=== PATIENT | male | born 1955 | race Hispanic/Latino ===

== ENCOUNTER 2019-06-14 13:12 | Inpatient (IN) | payer MEDICARE, OTHER ==
[~2019-06-14] VITALS: Ht 175.3 cm; Wt 134.4 kg
[2019-06-14 14:12] LABS: BASOPHILS % (AUTO) 0.6 % (0.0-5.0); EOSINOPHILS % (AUTO) 2.7 % (0.0-8.0); HEMATOCRIT 37.1 % (42-54); LYMPHOCYTES % (AUTO) 10.4 % (21.0-51.0); MEAN CORPUSCULAR HEMOGLOBIN 27.2 pg (27.0-33.0); MEAN CORPUSCULAR VOLUME 87.7 fL (79-99); MONOCYTES % (AUTO) 7.3 % (3.0-13.0); NEUTROPHILS % (AUTO) 78.5 % (40.0-77.0); PLATELET COUNT (AUTO) 161 K/uL (130-400); RED BLOOD CELL COUNT(AUTO) 4.23 MIL/uL (4.50-6.20); WHITE BLOOD COUNT (AUTO) 8.5 K/uL (4.8-10.8)
[2019-06-14 14:26] LABS: PARTIAL THROMBOPLASTIN TIME 27.7 SEC (26.3-35.5); PROTHROMBIN TIME 10.8 SEC (9.6-11.6)
[2019-06-14 14:27] LABS: CREATININE 2.2 mg/dL (0.5-1.5); POTASSIUM 4.2 mmol/L (3.5-5.1)
[2019-06-14 14:32] LABS: ALBUMIN 2.6 g/dL (3.5-5.0); BILIRUBIN,TOTAL 0.5 mg/dL (0.2-1.0); TOTAL PROTEIN, SERUM 6.8 g/dL (6.0-8.3)
[2019-06-14] MEDS ORDERED: FUROSEMIDE 10 MG/ML 4ML VIAL ONE (14:47)
[2019-06-14] MEDS ORDERED: FUROSEMIDE 10 MG/ML 2ML VIAL ONE (14:47)
[2019-06-14 15:17] LABS: B-TYPE NATRIURETIC PEPTIDE 616 pg/mL (0-100)
[2019-06-14] MEDS ORDERED: ONDANSETRON HCL 4 MG/2 ML VIAL IV PRN (18:30)
[2019-06-14] MEDS ORDERED: ACETAMINOPHEN 325 MG TAB PO PRN ×2 (18:30)
[2019-06-14 21:00] VITALS: BP 154/88
[2019-06-14] MEDS ORDERED: FUROSEMIDE 10 MG/ML 2ML VIAL IV SCH (21:00)
[2019-06-14] MEDS: FUROSEMIDE 10 MG/ML 2ML VIAL IV SCH (22:07)
[2019-06-14] MEDS: FAMOTIDINE/PF 20 MG/2 ML VIAL IV SCH (22:07)
[2019-06-14] MEDS: INSULIN HUMULIN R 100 UNIT/ML 3ML SQ SCH (22:15)
[2019-06-14] MEDS ORDERED: LISI-613 PO (22:18)
[2019-06-14] MEDS ORDERED: ATOR20TA PO (22:20)
[2019-06-14] MEDS ORDERED: CARV6.25 PO (22:23)
[2019-06-14] MEDS ORDERED: AMLO-258 PO (22:25)
[2019-06-14] MEDS ORDERED: FURO40TA5 PO (22:43)
[2019-06-15] VITALS (7 sets, daily range): BP systolic 129–157; BP diastolic 73–92
[2019-06-15] MEDS ORDERED: INSU100V12 SQ (00:25)
[2019-06-15 05:35] LABS: BASOPHILS % (AUTO) 0.4 % (0.0-5.0); EOSINOPHILS % (AUTO) 2.5 % (0.0-8.0); HEMATOCRIT 34.4 % (42-54); LYMPHOCYTES % (AUTO) 13.6 % (21.0-51.0); MEAN CORPUSCULAR HEMOGLOBIN 26.8 pg (27.0-33.0); MEAN CORPUSCULAR HGB CONC 30.2 g/dL (32.0-36.0); MEAN CORPUSCULAR VOLUME 88.7 fL (79-99); MONOCYTES % (AUTO) 10.1 % (3.0-13.0); NEUTROPHILS % (AUTO) 73.1 % (40.0-77.0); PLATELET COUNT (AUTO) 158 K/uL (130-400); RED BLOOD CELL COUNT(AUTO) 3.88 MIL/uL (4.50-6.20); WHITE BLOOD COUNT (AUTO) 9.2 K/uL (4.8-10.8)
[2019-06-15 05:51] LABS: B-TYPE NATRIURETIC PEPTIDE 663 pg/mL (0-100)
[2019-06-15] MEDS: INSULIN HUMULIN R 100 UNIT/ML 3ML SQ SCH ×4 (05:52→20:11)
[2019-06-15 05:56] LABS: ALBUMIN 2.2 g/dL (3.5-5.0); BILIRUBIN,TOTAL 0.4 mg/dL (0.2-1.0); CREATININE 2.4 mg/dL (0.5-1.5); POTASSIUM 4.2 mmol/L (3.5-5.1)
--- NOTE | 2019-06-15 08:27 | NUR ---
SEEN BY DR Aminta MIGUEL (CARDIO). STABLE.
[2019-06-15] MEDS: FUROSEMIDE 10 MG/ML 2ML VIAL IV SCH (08:29)
[2019-06-15] MEDS: FAMOTIDINE/PF 20 MG/2 ML VIAL IV SCH (08:29)
[2019-06-15] MEDS: ENOXAPARIN SODIUM 30 MG/0.3 ML SQ SCH (08:30)
--- NOTE | 2019-06-15 10:00 | NUR ---
[facility] CONSULT PATIENT ASSESSED REQUESTED: PATIENT PRESENTS WITH VENOUS ULCERS TO BILATERAL LOWER EXTREMITIES; [facility] RECOMMENDATIONS SUBMITTED. Addendum: 06/18/19 at 1211 by KIKO CAMILO LVN LVN W Amended: Links added.
--- NOTE | 2019-06-15 10:00 | NUR ---
WOUND CARE NURSE HERE TO SEE FOR WOUND ASSESSMENT
--- NOTE | 2019-06-15 13:18 | NUR ---
INITIAL SW spoke to patient's spouse, Meredith Juarez, [phone]. Patient has no home services. DME: walker, shower chair. Patient needs help with ADL's and spouse states she tries to help as much as possible. 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 Spouse states she does not drive. SW informed spouse that she could call patient's insurance and check if it covers transportation. PCP is Dr. Dejan Peña. Pharmacy is [facility] located in [place]. Spouse requesting assistance at home when patient is discharged to assist her in caring for patient. DCP is home. Addendum: 06/15/19 at 1322 by PAVEL MCLAUGHLIN SS Amended: Links added.
--- NOTE | 2019-06-15 15:18 | NUR ---
UPDATED DR. ESPINOZA ABOUT INABILITY TO INSERT FOLY CATHETER R/T SCROTAL SWELLING AEB RETRACTED PENIS. ORDERED FOR BLADDER SCAN WITH EVERY URINATION.
[2019-06-15] MEDS ORDERED: BUMETANIDE 0.25 MG/ML 10 ML VIAL IV SCH (16:30)
--- NOTE | 2019-06-15 17:15 | NUR ---
CALLED DR. VELASCO REGARDING PULMONOLOGY CONSULT. LEFT VOICE MAIL. CALLBACK AWAITED.
[2019-06-15] MEDS: CLINDAMYCIN 300 MG/D5W 50 ML 50 ML IV SCH ×2 (19:37→21:30)
--- NOTE | 2019-06-15 19:42 | NUR ---
DR. MCCABE SAW PT. NEW ORDERS ACKNOWLEDGED AND INITIATED.
[2019-06-15] MEDS: CARVEDILOL 3.125 MG TABLET PO SCH (19:43)
[2019-06-15] MEDS: HONEY 1 APPL/ML TUBE TP SCH (19:44)
--- NOTE | 2019-06-15 21:00 | NUR ---
c-pap PATIENT IS REFUSING TO TRY C-PAP AT THIS TIME. EDUCATED PATIENT ON RISKS AND BENEFITS BUT HE STILL REFUSED.
--- NOTE | 2019-06-15 21:00 | NUR ---
POST VOID BLADDER SCAN RECORDED THUS: 50ML @ 1550 50ML @1710 131ML @1830
[2019-06-15] MEDS: BUMETANIDE 0.25 MG/ML 80 ML IV SCH (21:52)
--- NOTE | 2019-06-16 02:01 | NUR ---
POST VOID BLADDER SCAN OF 100ML POST VOID.
[2019-06-16 03:59] VITALS: BP 159/87
[2019-06-16] MEDS: CLINDAMYCIN 300 MG/D5W 50 ML 50 ML IV SCH ×4 (04:03→22:21)
[2019-06-16] MEDS: INSULIN HUMULIN R 100 UNIT/ML 3ML SQ SCH ×4 (04:50→22:22)
[2019-06-16 05:44] LABS: BASOPHILS % (AUTO) 0.4 % (0.0-5.0); EOSINOPHILS % (AUTO) 2.7 % (0.0-8.0); HEMATOCRIT 35.8 % (42-54); MEAN CORPUSCULAR HEMOGLOBIN 26.7 pg (27.0-33.0); MEAN CORPUSCULAR HGB CONC 30.4 g/dL (32.0-36.0); MEAN CORPUSCULAR VOLUME 87.5 fL (79-99); MONOCYTES % (AUTO) 9.6 % (3.0-13.0); NEUTROPHILS % (AUTO) 72.1 % (40.0-77.0); PLATELET COUNT (AUTO) 153 K/uL (130-400); RED BLOOD CELL COUNT(AUTO) 4.09 MIL/uL (4.50-6.20); RED CELL DISTRIBUTION WIDTH 15.9 % (11.0-15.5)
[2019-06-16 06:09] LABS: CREATININE 2.4 mg/dL (0.5-1.5); MAGNESIUM 2.2 mg/dL (1.80-2.40); PHOSPHORUS 5.3 mg/dL (2.5-4.9); POTASSIUM 4.2 mmol/L (3.5-5.1); THYROID STIMULATING HORMONE 2.03 uIU/mL (0.36-3.74); URIC ACID 7.9 mg/dL (2.6-7.2)
[2019-06-16 07:30] VITALS: BP 168/76
[2019-06-16] MEDS: HONEY 1 APPL/ML TUBE TP SCH (09:57)
[2019-06-16] MEDS: FAMOTIDINE/PF 20 MG/2 ML VIAL IV SCH (09:58)
[2019-06-16] MEDS: CARVEDILOL 3.125 MG TABLET PO SCH ×2 (09:58→19:42)
[2019-06-16] MEDS: ENOXAPARIN SODIUM 30 MG/0.3 ML SQ SCH (09:58)
[2019-06-16] MEDS: Vitamin B Complex/Vit C/Folic Acid PO SCH (09:58)
[2019-06-16 11:00] VITALS: BP 154/79
[2019-06-16] MEDS: METOLAZONE 2.5 MG TABLET PO SCH (12:28)
[2019-06-16] MEDS: BUMETANIDE 0.25 MG/ML 80 ML IV SCH (13:42)
--- NOTE | 2019-06-16 13:54 | NUR ---
RD Notification Pt tolerating Renal, 75gm CC diet order with fluid restriction. No report of GI distress, Good PO intake at 100%. Pt with CHF pending nutrition education. RD to follow up with nutrition education. Please notify as additional nutrition concerns arise. Thank you. Addendum: 06/16/19 at [address] RD Amended: Links added.
--- NOTE | 2019-06-16 14:19 | NUR ---
NUTRITION EDUCATION JOHNATHON provided Heart Failure Nutrition education. JOHNATHON provided reference materials and handouts. Pt with some visual impairment with small font, states he does not wear glasses at home. Pt demonstrated knowledge of fluid and sodium restrictions. 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 Pt verbalized and demonstrated understanding of nutrition education. Addendum: 06/16/19 at [address] RD Amended: Links added.
[2019-06-16 16:00] VITALS: BP 163/71
[2019-06-16] MEDS: HYDROMORPHONE 1 MG/1 ML AMP IV PRN (19:49)
[2019-06-16 20:00] VITALS: BP 162/99
[2019-06-17] VITALS: BP 142/71
[2019-06-17] MEDS: HYDROMORPHONE 1 MG/1 ML AMP IV PRN ×2 (00:56→03:38)
[2019-06-17] MEDS: CLINDAMYCIN 300 MG/D5W 50 ML 50 ML IV SCH ×4 (03:37→22:44)
[2019-06-17 04:49] LABS: BASOPHILS % (AUTO) 0.5 % (0.0-5.0); HEMATOCRIT 34.9 % (42-54); MEAN CORPUSCULAR HEMOGLOBIN 27.3 pg (27.0-33.0); MEAN CORPUSCULAR HGB CONC 31.5 g/dL (32.0-36.0); MEAN CORPUSCULAR VOLUME 86.6 fL (79-99); MONOCYTES % (AUTO) 9.1 % (3.0-13.0); PLATELET COUNT (AUTO) 155 K/uL (130-400); RED BLOOD CELL COUNT(AUTO) 4.03 MIL/uL (4.50-6.20); RED CELL DISTRIBUTION WIDTH 15.7 % (11.0-15.5); WHITE BLOOD COUNT (AUTO) 7.5 K/uL (4.8-10.8)
[2019-06-17 04:52] VITALS: BP 151/83
[2019-06-17 05:08] LABS: CREATININE 2.5 mg/dL (0.5-1.5); POTASSIUM 3.8 mmol/L (3.5-5.1)
[2019-06-17 05:18] LABS: B-TYPE NATRIURETIC PEPTIDE 990 pg/mL (0-100)
[2019-06-17 05:29] LABS: % IRON SATURATION 17.9 % (30-44)
[2019-06-17] MEDS: INSULIN HUMULIN R 100 UNIT/ML 3ML SQ SCH ×4 (06:25→21:11)
[2019-06-17 07:30] VITALS: BP 159/89
[2019-06-17] MEDS: METOLAZONE 2.5 MG TABLET PO SCH ×2 (10:19→10:31)
[2019-06-17] MEDS: Vitamin B Complex/Vit C/Folic Acid PO SCH ×2 (10:19→10:32)
[2019-06-17] MEDS: CARVEDILOL 3.125 MG TABLET PO SCH ×3 (10:22→20:57)
[2019-06-17] MEDS: ENOXAPARIN SODIUM 30 MG/0.3 ML SQ SCH ×2 (10:23→10:33)
[2019-06-17] MEDS: FAMOTIDINE/PF 20 MG/2 ML VIAL IV SCH ×2 (10:25→10:33)
[2019-06-17 10:58] LABS: ABG BASE EXCESS 2.4 mmol/L (-2.0-3.0); ABG HCO3 28.5 mmol/L (21.0-28.0); ABG OXYGEN SATURATION 85.5 % (95.0-99.0); ABG PCO2 49 mmHg (35-48)
[2019-06-17 11:00] VITALS: BP 170/75
[2019-06-17] MEDS ORDERED: BUMETANIDE 0.25 MG/ML 10 ML 40 ML IV SCH (15:00)
[2019-06-17 16:00] VITALS: BP 159/82
[2019-06-17] MEDS: HONEY 1 APPL/ML TUBE TP SCH (17:21)
[2019-06-17] MEDS: BUMETANIDE 0.25 MG/ML 10 ML 40 ML IV SCH (18:38)
[2019-06-17 20:56] VITALS: BP 142/75
[2019-06-17] MEDS: FERROUS SULFATE 325 MG TABLET.DR PO SCH (20:57)
[2019-06-18] VITALS (7 sets, daily range): BP systolic 105–165; BP diastolic 64–85
[2019-06-18] MEDS: BUMETANIDE 0.25 MG/ML 10 ML 40 ML IV SCH ×2 (02:53→12:03)
[2019-06-18] MEDS: CLINDAMYCIN 300 MG/D5W 50 ML 50 ML IV SCH ×4 (04:45→22:15)
[2019-06-18 05:41] LABS: HEMATOCRIT 35.9 % (42-54); MEAN CORPUSCULAR HEMOGLOBIN 26.8 pg (27.0-33.0); MEAN CORPUSCULAR HGB CONC 31.5 g/dL (32.0-36.0); MEAN CORPUSCULAR VOLUME 85.1 fL (79-99); PLATELET COUNT (AUTO) 162 K/uL (130-400); RED BLOOD CELL COUNT(AUTO) 4.22 MIL/uL (4.50-6.20); RED CELL DISTRIBUTION WIDTH 15.7 % (11.0-15.5); WHITE BLOOD COUNT (AUTO) 8.2 K/uL (4.8-10.8)
[2019-06-18] MEDS: INSULIN HUMULIN R 100 UNIT/ML 3ML SQ SCH ×4 (05:48→20:31)
[2019-06-18 05:53] LABS: CREATININE 2.4 mg/dL (0.5-1.5); MAGNESIUM 1.9 mg/dL (1.80-2.40); PHOSPHORUS 4.7 mg/dL (2.5-4.9); POTASSIUM 3.4 mmol/L (3.5-5.1)
[2019-06-18 06:00] LABS: EOSINOPHILS % (MANUAL) 4 % (1-6); LYMPHOCYTES % (MANUAL) 17 % (22-44); MONOCYTES % (MANUAL) 6 % (2-9); SEGMENTED NEUTROPHILS % 73 % (40-70)
[2019-06-18 06:01] LABS: MAN.DIFF COMMENT-IMPRESSION MANUAL DIFFERENTIAL
[2019-06-18 06:04] LABS: B-TYPE NATRIURETIC PEPTIDE 703 pg/mL (0-100)
[2019-06-18] MEDS: METOLAZONE 2.5 MG TABLET PO SCH (09:00)
[2019-06-18] MEDS: ASCORBIC ACID 500 MG TAB PO SCH ×2 (09:00→09:23)
[2019-06-18] MEDS: Vitamin B Complex/Vit C/Folic Acid PO SCH (09:00)
[2019-06-18] MEDS: FERROUS SULFATE 325 MG TABLET.DR PO SCH ×2 (09:23→20:26)
[2019-06-18] MEDS: CARVEDILOL 3.125 MG TABLET PO SCH ×2 (09:23→20:27)
[2019-06-18] MEDS: HONEY 1 APPL/ML TUBE TP SCH (09:24)
--- NOTE | 2019-06-18 10:00 | NUR ---
WOUND CARE DONE. VENOUS ULCERS CLEANED WITH NS, MEDIHONEY APPLIED AND 4X4 GAUZE ON TOP. WRAPPED LEGS WITH KERLEX.
--- NOTE | 2019-06-18 15:33 | NUR ---
MD ROUNDS DR ESPINOZA VISITED WITH PATIENT. POC DISCUSSED. DR ESPINOZA THINKS IS APPROPIATE FOR PATIENT TO CONTINUE THE BUMEX DRIP WELL THE PO DIURETICS.
[2019-06-18 16:11] LABS: HEMATOCRIT 34.5 % (42-54); MEAN CORPUSCULAR HEMOGLOBIN 27.3 pg (27.0-33.0); MEAN CORPUSCULAR HGB CONC 31.3 g/dL (32.0-36.0); MEAN CORPUSCULAR VOLUME 87.3 fL (79-99); PLATELET COUNT (AUTO) 159 K/uL (130-400); RED BLOOD CELL COUNT(AUTO) 3.95 MIL/uL (4.50-6.20); RED CELL DISTRIBUTION WIDTH 15.6 % (11.0-15.5); WHITE BLOOD COUNT (AUTO) 8.9 K/uL (4.8-10.8)
[2019-06-18 16:29] LABS: CREATININE 2.4 mg/dL (0.5-1.5); POTASSIUM 3.4 mmol/L (3.5-5.1)
[2019-06-18 16:56] LABS: BAND NEUTROPHILS % (MANUAL) 1 % (0-2); EOSINOPHILS % (MANUAL) 3 % (1-6); LYMPHOCYTES % (MANUAL) 6 % (22-44); MAN.DIFF COMMENT-IMPRESSION MANUAL DIFFERENTIAL; MONOCYTES % (MANUAL) 3 % (2-9); PLATELET MORPHOLOGY COMMENT ADEQUATE; SEGMENTED NEUTROPHILS % 87 % (40-70)
[2019-06-19] MEDS: BUMETANIDE 0.25 MG/ML 10 ML 40 ML IV SCH (02:14)
[2019-06-19 04:00] VITALS: BP 151/76
[2019-06-19] MEDS: CLINDAMYCIN 300 MG/D5W 50 ML 50 ML IV SCH ×4 (04:43→22:24)
[2019-06-19 05:52] LABS: CREATININE 2.5 mg/dL (0.5-1.5); POTASSIUM 3.3 mmol/L (3.5-5.1)
[2019-06-19] MEDS: INSULIN HUMULIN R 100 UNIT/ML 3ML SQ SCH ×4 (05:54→20:32)
[2019-06-19 08:56] VITALS: BP 165/75
[2019-06-19] MEDS: METOLAZONE 2.5 MG TABLET PO SCH (09:36)
[2019-06-19] MEDS: FAMOTIDINE/PF 20 MG/2 ML VIAL IV SCH (09:36)
[2019-06-19] MEDS: ASCORBIC ACID 500 MG TAB PO SCH (09:36)
[2019-06-19] MEDS: Vitamin B Complex/Vit C/Folic Acid PO SCH (09:36)
[2019-06-19] MEDS: CARVEDILOL 3.125 MG TABLET PO SCH ×2 (09:36→20:29)
[2019-06-19] MEDS: FERROUS SULFATE 325 MG TABLET.DR PO SCH ×2 (09:36→20:27)
[2019-06-19] MEDS: HONEY 1 APPL/ML TUBE TP SCH (09:37)
[2019-06-19] MEDS: ENOXAPARIN SODIUM 30 MG/0.3 ML SQ SCH (09:37)
[2019-06-19 12:11] VITALS: BP 137/70
--- NOTE | 2019-06-19 16:00 | NUR ---
DR HARTMAN VISITED WITH PATIENT. HE REMOVED BOTH HALLUX TOENAILS. HYDROFERA BLUE FOAM AND TAPE APPLIED.
--- NOTE | 2019-06-19 16:00 | NUR ---
WOUND CARE DONE. VENOUS ULCERS CLEANED WITH NS, MEDIHONEY APPLIED AND 4X4 GAUZE ON TOP. WRAPPED LEGS WITH KERLEX.
[2019-06-19 16:46] VITALS: BP 163/89
[2019-06-19 19:30] VITALS: BP 152/85
[2019-06-19 23:07] VITALS: BP 133/70
[2019-06-20] MEDS: BUMETANIDE 0.25 MG/ML 10 ML 40 ML IV SCH ×2 (00:12→11:16)
[2019-06-20] MEDS: CLINDAMYCIN 300 MG/D5W 50 ML 50 ML IV SCH ×4 (03:54→23:10)
[2019-06-20 04:00] VITALS: BP 128/73
[2019-06-20 04:53] LABS: BASOPHILS % (AUTO) 0.4 % (0.0-5.0); EOSINOPHILS % (AUTO) 2.2 % (0.0-8.0); HEMATOCRIT 34.9 % (42-54); LYMPHOCYTES % (AUTO) 12.6 % (21.0-51.0); MEAN CORPUSCULAR HEMOGLOBIN 27.1 pg (27.0-33.0); MEAN CORPUSCULAR HGB CONC 32.1 g/dL (32.0-36.0); MEAN CORPUSCULAR VOLUME 84.5 fL (79-99); MONOCYTES % (AUTO) 9.8 % (3.0-13.0); NEUTROPHILS % (AUTO) 74.7 % (40.0-77.0); PLATELET COUNT (AUTO) 163 K/uL (130-400); RED BLOOD CELL COUNT(AUTO) 4.13 MIL/uL (4.50-6.20); RED CELL DISTRIBUTION WIDTH 15.3 % (11.0-15.5); WHITE BLOOD COUNT (AUTO) 9.2 K/uL (4.8-10.8)
[2019-06-20 05:16] LABS: CREATININE 2.4 mg/dL (0.5-1.5); PHOSPHORUS 4.5 mg/dL (2.5-4.9)
[2019-06-20 05:19] LABS: B-TYPE NATRIURETIC PEPTIDE 752 pg/mL (0-100)
[2019-06-20] MEDS: INSULIN HUMULIN R 100 UNIT/ML 3ML SQ SCH ×4 (06:12→21:00)
[2019-06-20] MEDS ORDERED: POTASSIUM CHLORIDE 20 MEQ ERTAB PO SCH (07:45)
[2019-06-20 07:57] VITALS: BP 156/70
[2019-06-20] MEDS: FERROUS SULFATE 325 MG TABLET.DR PO SCH ×2 (08:59→19:26)
[2019-06-20] MEDS: FAMOTIDINE/PF 20 MG/2 ML VIAL IV SCH (08:59)
[2019-06-20] MEDS: ASCORBIC ACID 500 MG TAB PO SCH (08:59)
[2019-06-20] MEDS: CARVEDILOL 3.125 MG TABLET PO SCH ×2 (09:00→19:27)
[2019-06-20] MEDS: Vitamin B Complex/Vit C/Folic Acid PO SCH (09:00)
[2019-06-20] MEDS: ENOXAPARIN SODIUM 30 MG/0.3 ML SQ SCH (09:01)
[2019-06-20] MEDS: HONEY 1 APPL/ML TUBE TP SCH (09:01)
--- NOTE | 2019-06-20 09:50 | NUR ---
WOUND CARE DONE. VENOUS ULCERS CLEANED WITH NS, MEDIHONEY APPLIED AND 4X4 GAUZE ON TOP. WRAPPED LEGS WITH KERLEX.
[2019-06-20 12:00] VITALS: BP 137/68
[2019-06-20 16:00] VITALS: BP 160/59
[2019-06-20] MEDS ORDERED: CARV3.12 PO (17:24)
[2019-06-20] MEDS: HYDROMORPHONE 1 MG/1 ML AMP IV PRN ×2 (19:27→23:10)
[2019-06-20 20:57] VITALS: BP 137/59
[2019-06-20 23:37] VITALS: BP 150/81
[2019-06-21] MEDS: HYDROMORPHONE 1 MG/1 ML AMP IV PRN ×2 (02:18→05:01)
[2019-06-21 04:01] VITALS: BP 145/85
[2019-06-21] MEDS: CLINDAMYCIN 300 MG/D5W 50 ML 50 ML IV SCH ×2 (05:00→09:54)
[2019-06-21 05:07] LABS: BASOPHILS % (AUTO) 0.3 % (0.0-5.0); EOSINOPHILS % (AUTO) 2.5 % (0.0-8.0); HEMATOCRIT 35.5 % (42-54); LYMPHOCYTES % (AUTO) 13.7 % (21.0-51.0); MEAN CORPUSCULAR HEMOGLOBIN 26.4 pg (27.0-33.0); MEAN CORPUSCULAR HGB CONC 31.3 g/dL (32.0-36.0); MEAN CORPUSCULAR VOLUME 84.5 fL (79-99); MONOCYTES % (AUTO) 11.2 % (3.0-13.0); PLATELET COUNT (AUTO) 170 K/uL (130-400); RED CELL DISTRIBUTION WIDTH 15.5 % (11.0-15.5); WHITE BLOOD COUNT (AUTO) 9.7 K/uL (4.8-10.8)
[2019-06-21 05:16] LABS: CREATININE 2.5 mg/dL (0.5-1.5); MAGNESIUM 1.9 mg/dL (1.80-2.40); POTASSIUM 3.1 mmol/L (3.5-5.1)
[2019-06-21 05:38] LABS: B-TYPE NATRIURETIC PEPTIDE 659 pg/mL (0-100)
[2019-06-21] MEDS: INSULIN HUMULIN R 100 UNIT/ML 3ML SQ SCH ×2 (06:31→11:30)
[2019-06-21 08:00] VITALS: BP 162/72
[2019-06-21] MEDS ORDERED: POTASSIUM CHLORIDE 20 MEQ ERTAB PO SCH (08:15)
[2019-06-21] MEDS ORDERED: MAGNESIUM OXIDE 400 MG TABLET PO SCH (08:15)
[2019-06-21] MEDS: FERROUS SULFATE 325 MG TABLET.DR PO SCH (08:18)
[2019-06-21] MEDS: CARVEDILOL 3.125 MG TABLET PO SCH (08:18)
[2019-06-21] MEDS: ASCORBIC ACID 500 MG TAB PO SCH (08:18)
[2019-06-21] MEDS: Vitamin B Complex/Vit C/Folic Acid PO SCH (08:18)
[2019-06-21] MEDS: FAMOTIDINE/PF 20 MG/2 ML VIAL IV SCH (08:18)
[2019-06-21] MEDS: ENOXAPARIN SODIUM 30 MG/0.3 ML SQ SCH (08:19)
[2019-06-21] MEDS: HONEY 1 APPL/ML TUBE TP SCH (08:19)
[2019-06-21 12:00] VITALS: BP 161/71
--- NOTE | 2019-06-21 12:50 | NUR ---
NEPHROLOGY DR. ESPINOZA IN TO SEE PATIENT. HAS BEEN CLEARED FOR DISCHARGE FROM HIS STANDPOINT.
[2019-06-21] MEDS ORDERED: BUME2TAB5 PO ×2 (13:28→14:52)
[2019-06-21] MEDS ORDERED: POTA-79 PO ×2 (13:28→14:52)
[2019-06-21] MEDS ORDERED: FERR324T4 PO (13:28)
[2019-06-21] MEDS ORDERED: CLIN300C9 PO ×2 (13:28→14:52)
[2019-06-21] MEDS ORDERED: CARV3.1262 PO (13:28)
[2019-06-21] MEDS ORDERED: AMLO-257 PO ×2 (13:42→14:52)
--- NOTE | 2019-06-21 14:44 | NUR ---
INSTRUCTIONS DISCHARGE INSTRUCTIONS GIVEN TO PATIENT USING TEACH BACK. NEW PRESCRIPTIONS PLACED IN PACKET ALONG WITH ALL PRINTED INFORMATION AND MD INSTRUCTIONS. F/U APPOINTMENTS MADE. IV REMOVED WITH TIP INTACT. DIRECT PRESSURE APPLIED UNTIL BLEEDING CONTROLLED THEN SITE COVERED WITH GAUZE AND SECURED WITH TAPE. NO QUESTIONS OR CONCERNS VOICED.
[2019-06-21] MEDS ORDERED: CARV3.12 PO (14:52)
[2019-06-21] MEDS ORDERED: FERS325 PO (14:52)
[2019-06-21] MEDS ORDERED: FUROSEMIDE 40 MG TABLET PO SCH (17:00)
== END 2019-06-21 15:50 | disposition home or self-care (01) | DRG 602 ==
LOC: EDH 13:12 → EDHIP 18:20 → 3DH 20:03
PROVIDERS: ADMIT Hospitalist; ATTEND Hospitalist
PROC: 0HDRXZZ Extraction of Toe Nail, External Approach (ICD-10-PCS; principal; 2019-06-19)
PROC: 0HDRXZZ Extraction of Toe Nail, External Approach (ICD-10-PCS; 2019-06-19)
PROC: 0HDRXZZ Extraction of Toe Nail, External Approach (ICD-10-PCS; 2019-06-19)
PROC: 0HDRXZZ Extraction of Toe Nail, External Approach (ICD-10-PCS; 2019-06-19)
PROC: 0HDRXZZ Extraction of Toe Nail, External Approach (ICD-10-PCS; 2019-06-19)
PROC: 0HDRXZZ Extraction of Toe Nail, External Approach (ICD-10-PCS; 2019-06-19)
PROC: 0HDRXZZ Extraction of Toe Nail, External Approach (ICD-10-PCS; 2019-06-19)
PROC: 0HDRXZZ Extraction of Toe Nail, External Approach (ICD-10-PCS; 2019-06-19)
PROC: 0HDRXZZ Extraction of Toe Nail, External Approach (ICD-10-PCS; 2019-06-19)
PROC: 0HDRXZZ Extraction of Toe Nail, External Approach (ICD-10-PCS; 2019-06-19)
DX: L03.116 Cellulitis of left lower limb (principal); I50.43 Acute on chronic combined systolic (congestive) and diastolic (congestive) heart failure; I13.0 Hypertensive heart and chronic kidney disease with heart failure and stage 1 through stage 4 chronic kidney disease, or unspecified chronic kidney disease; N17.9 Acute kidney failure, unspecified; Z68.42 Body mass index [BMI] 45.0-49.9, adult; J96.11 Chronic respiratory failure with hypoxia; J96.12 Chronic respiratory failure with hypercapnia; E66.2 Morbid (severe) obesity with alveolar hypoventilation; L03.115 Cellulitis of right lower limb; N50.89 Other specified disorders of the male genital organs; H10.9 Unspecified conjunctivitis; I87.2 Venous insufficiency (chronic) (peripheral); N18.3 Chronic kidney disease, stage 3 (moderate); E78.5 Hyperlipidemia, unspecified; E11.22 Type 2 diabetes mellitus with diabetic chronic kidney disease; B35.1 Tinea unguium; D63.1 Anemia in chronic kidney disease; E11.621 Type 2 diabetes mellitus with foot ulcer; E87.6 Hypokalemia; Z91.19 Patient's noncompliance with other medical treatment and regimen; L60.2 Onychogryphosis; L30.9 Dermatitis, unspecified; I87.8 Other specified disorders of veins; L97.509 Non-pressure chronic ulcer of other part of unspecified foot with unspecified severity; E11.51 Type 2 diabetes mellitus with diabetic peripheral angiopathy without gangrene; I83.009 Varicose veins of unspecified lower extremity with ulcer of unspecified site; L60.0 Ingrowing nail
CPT/HCPCS: 36415; 36600; 71045; 76770; 80048; 80053; 82550; 82728; 82803; 82948; 83036; 83540; 83550; 83735; 83880; 84100; 84132; 84145; 84443; 84484; 84550; 85025; 85610; 85730; 93005; G0378; J1170; J1650; J1815; J1940; J2405; J3490

== ENCOUNTER 2021-01-25 14:35 | Emergency (ER) | payer OTHER ==
[~2021-01-25] VITALS: Ht 175.3 cm; Wt 124.7 kg
[~2021-01-25 14:35] MED LIST: AMLO-257 PO; ATOR20TA PO; BUME2TAB5 PO; CARV3.12 PO; CLIN-141 PO; FERS325 PO; POTA-79 PO
[2021-01-25 15:17] LABS: BASOPHILS % (AUTO) 0.6 % (0.0-5.0); EOSINOPHILS % (AUTO) 3.3 % (0.0-8.0); HEMATOCRIT 31.3 % (42-54); MEAN CORPUSCULAR HEMOGLOBIN 27.8 pg (27.0-33.0); MEAN CORPUSCULAR HGB CONC 31.6 g/dL (32.0-36.0); MEAN CORPUSCULAR VOLUME 87.9 fL (79-99); MONOCYTES % (AUTO) 7.6 % (3.0-13.0); NEUTROPHILS % (AUTO) 76.1 % (40.0-77.0); PLATELET COUNT (AUTO) 135 K/uL (130-400); RED BLOOD CELL COUNT(AUTO) 3.56 MIL/uL (4.50-6.20); RED CELL DISTRIBUTION WIDTH 16.2 % (11.0-15.5); WHITE BLOOD COUNT (AUTO) 11.2 K/uL (4.8-10.8)
[2021-01-25 15:47] LABS: CREATININE 3.3 mg/dL (0.5-1.5); POTASSIUM 3.5 mmol/L (3.5-5.1)
[2021-01-25 15:53] LABS: BILIRUBIN,TOTAL 0.5 mg/dL (0.2-1.0); TOTAL PROTEIN, SERUM 7.7 g/dL (6.0-8.3)
[2021-01-25 16:14] LABS: B-TYPE NATRIURETIC PEPTIDE 711 pg/mL (0-100)
[2021-01-25 16:54] LABS: ERYTHROCYTE SEDIMENTATION RATE 58 MM/HR (0-20)
[2021-01-25 19:17] LABS: APPEARANCE,URINE Cloudy (CLEAR); BILIRUBIN,URINE Negative (NEGATIVE); COLOR,URINE Yellow (YELLOW); GLUCOSE, URINE (UA) TRACE mg/dL (NEGATIVE); KETONES,URINE Negative (NEGATIVE); LEUKOCYTE ESTERASE ,URINE Small (NEGATIVE); NITRATE,URINE Negative (NEGATIVE); OCCULT BLOOD,URINE Negative (NEGATIVE); PROTEIN,URINE 300 mg/dL (NEGATIVE)
[2021-01-25 19:22] LABS: RBC,URINE 0-1 /HPF (0-1)
[2021-01-25 19:23] LABS: AMORPHOUS SEDIMENT,UR Few /LPF (None Seen); BACTERIA,URINE Few /HPF (None Seen); SQUAMOUS EPITHELIAL CELL,UR Rare /HPF (0-2)
[2021-01-25 21:02] VITALS: BP 127/66
== END 2021-01-25 21:39 | disposition home or self-care (01) ==
LOC: EDH 14:35
DX: I13.2 Hypertensive heart and chronic kidney disease with heart failure and with stage 5 chronic kidney disease, or end stage renal disease (principal); E11.22 Type 2 diabetes mellitus with diabetic chronic kidney disease; N18.6 End stage renal disease; I50.9 Heart failure, unspecified; E87.70 Fluid overload, unspecified; M79.604 Pain in right leg; R53.1 Weakness; Z99.2 Dependence on renal dialysis
CPT/HCPCS: 36415; 71045; 76882; 80053; 81001; 83880; 84484; 85025; 85651; 93005; 93970